=== PATIENT | male | born 1990 | race African-American/Black ===

== ENCOUNTER 2016-05-31 17:45 | Emergency (ER) | payer MEDICAID ==
[~2016-05-31 17:45] MED LIST: AMOXICILLIN875 MG PO; BENTYL20 MG PO; DELTASONE20 MG PO; FLEXERIL PO; IBUPROFEN PO; LOMOTIL TABLET1 TAB PO; MAGIC MOUTH WASH; MAGIC MOUTH WASH PO; MOTRIN400 M1 PO; NO MEDICATIONS; PROMETHAZINE D118 ML PO; ZOFRAN PO
[2016-05-31] MEDS ORDERED: MUCINEX D ER T1 EACH PO (18:23)
[2016-06-18] MEDS ORDERED: ANTIBIOTIC (11:54)
== END 2016-05-31 17:52 | disposition left against medical advice (07) ==
LOC: SED 17:45
DX: Z53.21 Procedure and treatment not carried out due to patient leaving prior to being seen by health care provider (principal)

== ENCOUNTER 2016-05-31 18:51 | Emergency (ER) | payer MEDICAID ==
--- NOTE | ~2016-05-31 | CR63 ---
[facility]. [facility] A Service of [facility] & [facility] RADIOLOGY TEXT RESULTS PATIENT: ANTONIA HUTCHINSON LOCATION: SED : 89 UNIT #: [id number] AGE: [address]: David Sharma SEX: M ORDER DR: [id number] [place] [address] [id number] E MR#: [id number] Acc #: [id number] NAME: ANTONIA HUTCHINSON. : 1990 SEX: M STUDY DATE/TIME: 05/31/2016 18:40 UNIT: SED ROOM: STUDY DESCRIPTION: CR Chest 2 View Attending Physician: David Sharma P.A.-C. Ordering Physician: David Sharma P.A.-C. Primary Care Physician: Primary Care Physician No MEDICAL IMAGING REPORT This report is preliminary unless electronic signature is present. EXAM PA and lateral chest HISTORY Cough and congestion for 1 week. FINDINGS PA and lateral examination of the chest upright shows a good expansion of the parenchyma with a normal distribution of the pulmonary vascularity. There is no indication of congestion, effusion, infiltrate, tumor, or nodular density. The pleural reflections and diaphragmatic contours are normal. The cardiac silhouette and mediastinal anatomy is within normal limits. IMPRESSION Normal chest. Dictated by... Beny Meredith M.D. THIS IS AN ELECTRONICALLY VERIFIED REPORT Beny Meredith M.D. at 06/01/2016 2:40 PM DFL/psc TD: 06/01/2016 00:12 JOB #: [id number] MEDICAL IMAGING REPORT Page 1 of 1
[~2016-05-31 18:51] MED LIST changes: +MUCINEX D ER T1 EACH PO
[2016-06-18] MEDS ORDERED: ANTIBIOTIC (11:54)
== END 2016-05-31 19:39 | disposition home or self-care (01) ==
LOC: SED 18:51
DX: J20.9 Acute bronchitis, unspecified (principal); J45.909 Unspecified asthma, uncomplicated
CPT/HCPCS: 71020; 99282; 99283

== ENCOUNTER 2016-06-18 11:57 | Emergency (ER) | payer MEDICAID ==
--- NOTE | ~2016-06-18 | CR63 ---
[facility]. [facility] A Service of [facility] & [facility] RADIOLOGY TEXT RESULTS PATIENT: ANTONIA HUTCHINSON LOCATION: SED : 89 UNIT #: [id number] AGE: [address]: Narendra Torres MD SEX: M ORDER DR: [id number] [place] [address] [id number] E MR#: [id number] Acc #: [id number] NAME: ANTONIA HUTCHINSON : 1990 SEX: M STUDY DATE/TIME: 06/18/2016 12:22 UNIT: SED ROOM: STUDY DESCRIPTION: CR Chest 2 View Attending Physician: Narendra Torres M.D. Referring Physician: Narendra Torres M.D. Ordering Physician: Narendra Torres M.D. Primary Care Physician: Primary Care Physician No MEDICAL IMAGING REPORT This report is preliminary unless electronic signature is present. EXAM PA and lateral chest INDICATION Chest pain for 2 days. FINDINGS Heart size is within normal limits. Lungs appear clear with no focal infiltrate seen. There is no pneumothorax or pleural effusion. No aggressive osseous abnormalities are identified. IMPRESSION No acute disease. Dictated by... Janet Ashley M.D. THIS IS AN ELECTRONICALLY VERIFIED REPORT Janet Ashley M.D. at 06/21/2016 1:01 PM AFF/giuseppe TD: 06/19/2016 07:39 JOB #: [id number] MEDICAL IMAGING REPORT Page 1 of 1
--- NOTE | ~2016-06-18 | EKG ---
PATIENT: ANTONIA HUTCHINSON UNIT #: [id number] Ventricular Rate: 68 BPM Atrial Rate: 68 BPM P-R Interval: 126 ms QRS Duration: 86 ms Q-T Interval: 372 ms QTC Calculation(Bezet): 395 ms P Stratford: 18 degrees Calculated R Stratford: 0 degrees Calculated T Stratford: 23 degrees Diagnosis Line: Normal sinus rhythm Diagnosis Line: Normal ECG Diagnosis Line: When compared with ECG of 03-OCT-2015 23:24, Diagnosis Line: No significant change was found Diagnosis Line: Confirmed by KATHLEEN FRAUSTO MD ([id number]) on 06/30/2016 Diagnosis Line: 11:46:13 AM INTERPRETING MD: LISBET COWART
[~2016-06-18 11:57] MED LIST changes: +ANTIBIOTIC
== END 2016-06-18 13:19 | disposition home or self-care (01) ==
LOC: SED 11:57
DX: M94.0 Chondrocostal junction syndrome [Tietze] (principal)
CPT/HCPCS: 71020; 93005; 99284

== ENCOUNTER 2016-07-20 15:37 | Emergency (ER) | payer MEDICAID ==
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
[2016-07-20] MEDS ORDERED: NO MEDICATIONS (15:49)
[2016-07-20 16:40] LABS: BASOPHIL% 0.5 % (0-2.5); EOSINOPHIL# 0.1 X10e3 (0-0.7); EOSINOPHIL% 1.5 % (0.0-7.0); HEMATOCRIT 42.7 % (38.0-50.0); HEMOGLOBIN 14.6 gm/dL (13.0-16.0); LYMPHOCYTE% 11.5 % (17.0-45.0); MEAN CELL VOLUME 87.2 FL (83-96); MEAN CORPUSCULAR HEMOGLOBIN 29.8 PG (28-34); MEAN CORPUSCULAR HGB CONC 34.2 g/dL (30-36); MEAN PLATELET VOLUME 9.9 FL (6.5-11.5); MONOCYTE# 0.4 X10e3 (0-1.0); MONOCYTE% 4.9 % (3.0-12.0); NEUTROPHIL# 7.1 X10e3 (1.5-7.1); NEUTROPHIL% 81.6 % (40-75); PLATELET COUNT 248 X10e3 (140-420); RED CELL DISTRIBUTION WIDTH 14.9 % (11.0-15.5); WHITE BLOOD COUNT 8.7 X10e3 (4.0-10.5)
[2016-07-20 16:41] LABS: DIFF IND NO
[2016-07-20 16:55] LABS: ALBUMIN SERUM 4.3 g/dL (3.5-5.0); BILIRUBIN,TOTAL 0.7 mg/dL (0.2-2.0); CALCIUM SERUM 9.2 mg/dL (8.4-10.2); POTASSIUM 3.5 mmol/L (3.5-5.1); PROTEIN TOTAL SERUM 7.4 g/dL (6.0-8.3)
== END 2016-07-20 18:35 | disposition home or self-care (01) ==
LOC: SED 15:37
PROVIDERS: Physician Assistant
DX: S00.83XA Contusion of other part of head, initial encounter (principal); Y04.2XXA Assault by strike against or bumped into by another person, initial encounter; Y92.69 Other specified industrial and construction area as the place of occurrence of the external cause; Y99.0 Civilian activity done for income or pay
CPT/HCPCS: 36415; 70450; 70486; 72125; 80053; 85025; 96374; 96375; 99284; J1885; J2405